=== PATIENT | male | born 2000 | race African-American/Black ===

== ENCOUNTER 2022-04-20 19:50 | Emergency (ER) | payer SELFPAY ==
[~2022-04-20] VITALS: Ht 172.7 cm; Wt 76.0 kg
[2022-04-20] MEDS ORDERED: MORPHINE SULFATE 4 MG/ML CPJ (NOT FOR IM USE) IV STA (19:52)
[2022-04-20] MEDS ORDERED: CEFAZOLIN 1000MG PREMIX 50 ML IV ONE (20:00)
[2022-04-20] MEDS ORDERED: TETANUS, DIPHTHERIA, PERTUSSIS VAC/PF 0.5ML (>10YR OLD) IM ONE (20:00)
[2022-04-20 20:16] LABS: BASOPHILS % 0.6 % (0.0-2.0); HEMATOCRIT. 43.9 % (42.0-52.0); HEMOGLOBIN. 14.6 g/dL (14.0-18.0); LYMPHOCYTES % 35.7 % (20.0-50.0); MEAN CORPUSCULAR HEMOGLOBIN 29.2 pg (28.0-32.0); MEAN CORPUSCULAR VOLUME 87.6 fL (80.0-94.0); MEAN PLATELET VOLUME 9.8 fl (7.4-10.4); MONOCYTES % 8.8 % (2.0-8.0); NEUTROPHILS % 53.9 % (40.0-76.0); PLATELET 123 x1000/uL (130-400); RED BLOOD CELL COUNT 5.01 mill/uL (4.7-6.1); RED CELL DISTRIBUTION WIDTH 13.8 % (11.6-14.6)
[2022-04-20 20:26] LABS: CHLORIDE 104 mEq/L (98-107)
[2022-04-20 20:28] LABS: INR 1.1; PARTIAL THROMBOPLASTIN TIME 24.3 sec (23.4-31.0); PROTHROMBIN TIME 11.6 sec (9.6-11.0)
[2022-04-20] MEDS ORDERED: IOHEXOL-300 100 ML BOTTLE ONE (20:47)
[2022-04-20] MEDS ORDERED: FENTANYL CITRATE/PF 50MCG/ML 2ML VIAL IV ONE (21:00)
[2022-04-20 21:03] VITALS: BP 132/99
== END 2022-04-20 21:30 | disposition short-term general hospital (02) ==
LOC: ER 19:50
DX: S21.142A Puncture wound with foreign body of left front wall of thorax without penetration into thoracic cavity, initial encounter (principal); S41.032A Puncture wound without foreign body of left shoulder, initial encounter; S27.0XXA Traumatic pneumothorax, initial encounter; X95.9XXA Assault by unspecified firearm discharge, initial encounter; Y93.89 Activity, other specified; Y92.89 Other specified places as the place of occurrence of the external cause
CPT/HCPCS: 36415; 71045; 80053; 85025; 85610; 85730; 90471; 90715; 96365; 96375; 99291; J0690; J2270; J3010; Z7610; Q9967